=== PATIENT | female | born 1970 | race Caucasian/White ===

== ENCOUNTER 2016-11-09 15:07 | Emergency (ER) | payer MEDICAID ==
[2016-11-09 15:14] VITALS: BP 116/81; TEMP 97.9
[2016-11-09] MEDS ORDERED: HYDROCODONE/APAP 5/325 TAB PO ONE (15:51)
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
[2016-11-09 16:39] VITALS: PULSE 70; RESP 18; O2SAT 94
== END 2016-11-09 16:38 | disposition home or self-care (01) ==
DX: S22.31XA Fracture of one rib, right side, initial encounter for closed fracture (principal); W18.39XA Other fall on same level, initial encounter